=== PATIENT | male | born 1990 | race American Indian/Alaskan Native ===

== ENCOUNTER 2020-01-17 23:09 | Emergency (ER) | payer SELFPAY ==
[2020-01-18] MEDS ORDERED: ACETAMINOPHEN 500 MG TAB PO ONE (00:29)
[2020-01-18] MEDS ORDERED: IBUPROFEN 600 MG TAB PO ONE (00:29)
--- NOTE | 2020-01-18 01:06 | XRay Report ---
Left knee 4 views INDICATION: Left knee pain following injury IMPRESSION: Small knee effusion. No fracture or subluxation Signer Name: Clyde Hemphill MD Signed: 01/18/2020 1:02 AM Workstation Name: [id number]
--- NOTE | 2020-01-18 01:14 | Emergency Department Report ---
ED Lower Extremity HPI - General Chief Complaint: Extremity Injury, Lower Stated Complaint: DROP WEIGHT ON BOTH KNEES Source: patient Mode of arrival: Ambulatory Limitations: No Limitations - History of Present Illness Initial Comments: Patient is a 30-year-old -[place]ian male with no past medical history presented to the ED with complaint of acute onset persistent bilateral knee pain after metallic weight slipped off his hand and fell onto his knees bilaterally while at the gym 4 days ago. Patient states that the pain has been getting worse and especially in the last 24 hours when the pain got worse like that any movement makes the pain worse. Patient denies fall, numbness and tingling or weakness of lower extremities bilaterally, dizziness, syncope, hip pain, back pain, nausea and vomiting, chest pain or shortness of breath. MD Complaint: knee injury (Bilateral knee pain) -: Sudden, days(s) (4) Injury: Knee: Right, Left (Bilateral knee pain) Type of Injury: blunt Place: other (Gymnasium) Severity: severe Severity scale (0 -10): 7 Improves With: nothing Worsens With: weight bearing, movement, palpation Context: direct blow Associated Symptoms: swelling, able to partially bear weight - Related Data Previous Rx's Medication Instructions Recorded Last Taken Type Ibuprofen [Motrin] 600 mg PO Q8H PRN #24 tablet 01/18/20 Unknown Rx tiZANidine [Zanaflex 4mg TAB] 4 mg PO Q8H PRN #15 tablet 01/18/20 Unknown Rx traMADoL [Ultram] 50 mg PO Q6HR PRN #12 tablet 01/18/20 Unknown Rx Allergies Allergy/AdvReac Type Severity Reaction Status Date / Time morphine Allergy Unknown Verified 01/17/20 23:43 ED Review of Systems ROS: Stated complaint: DROP WEIGHT ON BOTH KNEES Other details as noted in HPI Constitutional: denies: chills, fever Eyes: denies: eye pain, eye discharge, vision change ENT: denies: ear pain, throat pain Respiratory: denies: cough, shortness of breath, wheezing Cardiovascular: denies: chest pain, palpitations Endocrine: no symptoms reported Gastrointestinal: denies: abdominal pain, nausea, diarrhea Genitourinary: denies: urgency, dysuria Musculoskeletal: arthralgia (Bilateral knee pain). denies: back pain, joint swelling Skin: denies: rash, lesions Neurological: denies: headache, weakness, paresthesias Psychiatric: denies: anxiety, depression Hematological/Lymphatic: denies: easy bleeding, easy bruising ED Past Medical Hx - Past Medical History Previous Medical History?: Yes - Surgical History Past Surgical History?: Yes Additional Surgical History: right hand - Social History Smoking Status: Never Smoker Substance Use Type: Alcohol - Medications Home Medications: Home Medications Medication Instructions Recorded Confirmed Last Taken Type Ibuprofen [Motrin] 600 mg PO Q8H PRN #24 tablet 01/18/20 Unknown Rx tiZANidine [Zanaflex 4mg TAB] 4 mg PO Q8H PRN #15 tablet 01/18/20 Unknown Rx traMADoL [Ultram] 50 mg PO Q6HR PRN #12 tablet 01/18/20 Unknown Rx ED Physical Exam - General Limitations: No Limitations General appearance: alert, in no apparent distress - Head Head exam: Present: atraumatic, normocephalic, normal inspection - Eye Eye exam: Present: normal appearance, PERRL, EOMI Pupils: Present: normal accommodation - ENT ENT exam: Present: normal exam, normal orophraynx, mucous membranes moist, TM's normal bilaterally, normal external ear exam - Neck Neck exam: Present: normal inspection, full ROM - Respiratory Respiratory exam: Present: normal lung sounds bilaterally. Absent: respiratory distress, wheezes, chest wall tenderness - Cardiovascular Cardiovascular Exam: Present: regular rate, normal rhythm, normal heart sounds. Absent: systolic murmur, diastolic murmur, rubs, gallop - GI/Abdominal GI/Abdominal exam: Present: soft, normal bowel sounds. Absent: tenderness, hyperactive bowel sounds - Extremities Exam Extremities exam: Present: normal inspection, full ROM, tenderness (Palpable bilateral knee tenderness), normal capillary refill. Absent: pedal edema, joint swelling, calf tenderness - Back Exam Back exam: Present: normal inspection, full ROM. Absent: tenderness, muscle spasm, paraspinal tenderness - Neurological Exam Neurological exam: Present: alert, oriented X3, CN II-XII intact, normal gait, reflexes normal - Psychiatric Psychiatric exam: Present: normal affect, normal mood - Skin Skin exam: Present: warm, dry, intact, normal color. Absent: rash ED Course Vital Signs 01/17/20 01/18/20 01/18/20 23:41 00:45 00:46 Temperature 97.5 F L Pulse Rate 73 Respiratory 18 16 16 Rate Blood Pressure 118/69 O2 Sat by Pulse 98 Oximetry ED Lower Extremity MDM - Radiology Data Radiology results: report reviewed, image reviewed Findings [facility] [address] [address] XRay Report Signed Patient: DARSHANA LOCO MR #: [id number] : 1990 Acct:[id number] Age/Sex: 30 / M ADM Date: 01/17/20 Loc: ED Attending Dr: Ordering Physician: PABLO ZAVALA Date of Service: 01/17/20 Procedure(s): XR knee BILAT 3V Accession Number(s): [id number] cc: PABLO ZAVALA Fluoro Time In Minutes: Left knee 4 views INDICATION: Left knee pain following injury IMPRESSION: Small knee effusion. No fracture or subluxation Signer Name: Clyde Hemphill MD Signed: 01/18/2020 1:02 AM Workstation Name: [id number] Transcribed By: Dictated By: Clyde Hemphill MD Electronically Authenticated By: Clyde Hemphill MD Signed Date/Time: 01/18/20101 DD/ 0 TD/TT: - Medical Decision Making This is a 30-year-old -[place] male with no past medical history presented to the ED with complaint of acute onset persistent bilateral knee pain after metallic weight slipped off his hand and fell onto his knees bilaterally while at the gym 4 days ago. Patient states that the pain has been getting worse and especially in the last 24 hours when the pain got worse like that any movement makes the pain worse. In the ED, patient is alert and oriented x3 and is not in distress. Bilateral knee x-ray shows no acute fractures or subluxations. Patient was treated for pain and the knees were splinted with Donnie wrap and the patient discharged home on pain medications and muscle relaxants. Patient was advised to follow-up with his primary care physician in 7 to 10 days for reevaluation. Patient was was advised to return to the ED immediately if symptoms get worse. - Differential Diagnosis Knee sprain; Contusion; Tendon tear; Fractureed knee; Muscle strain Critical care attestation.: If time is entered above; I have spent that time in minutes in the direct care of this critically ill patient, excluding procedure time. ED Disposition Clinical Impression: Knee sprain, bilateral Muscle strain of knee Qualifiers: Encounter type: initial encounter Laterality: unspecified laterality Qualified Code(s): S86.919A - Strain of unspecified muscle(s) and tendon(s) at lower leg level, unspecified leg, initial encounter Contusion of knee and lower leg Qualifiers: Encounter type: initial encounter Laterality: unspecified laterality Qualified Code(s): S80.00XA - Contusion of unspecified knee, initial encounter; S80.10XA - Contusion of unspecified lower leg, initial encounter Disposition: TO HOME OR SELFCARE Is pt being admited?: No Does the pt Need Aspirin: No Condition: Stable Instructions: Knee Sprain (ED), Leg Sprain (ED), Knee Pain (ED) Additional Instructions: All x-rays show no acute fractures or subluxations. Therefore take pain medications as needed with food, drink plenty of fluids and follow-up with your primary care physician in 7 to 10 days for reevaluation. Return to the ED immediately if symptoms get worse. Prescriptions: Ibuprofen [Motrin] 600 mg PO Q8H PRN #24 tablet PRN Reason: Pain traMADoL [Ultram] 50 mg PO Q6HR PRN #12 tablet PRN Reason: Pain tiZANidine [Zanaflex 4mg TAB] 4 mg PO Q8H PRN #15 tablet PRN Reason: Muscle Spasm Referrals: LUIS FELIPE SWIFT MD [Staff Physician] - 3-5 Days Time of Disposition: 01:16 Print Language: MACEDONIAN
[2020-01-18 02:02] VITALS: BP 115/62
== END 2020-01-18 01:36 | disposition home or self-care (01) ==
LOC: ED 23:09
DX: S83.91XA Sprain of unspecified site of right knee, initial encounter (principal); S83.92XA Sprain of unspecified site of left knee, initial encounter; S86.912A Strain of unspecified muscle(s) and tendon(s) at lower leg level, left leg, initial encounter; S86.911A Strain of unspecified muscle(s) and tendon(s) at lower leg level, right leg, initial encounter; Z98.890 Other specified postprocedural states; Z88.6 Allergy status to analgesic agent; Z79.899 Other long term (current) drug therapy; W01.198A Fall on same level from slipping, tripping and stumbling with subsequent striking against other object, initial encounter; Y93.89 Activity, other specified; Y92.89 Other specified places as the place of occurrence of the external cause; Y99.8 Other external cause status